=== PATIENT | female | born 1950 | race Caucasian/White ===

== ENCOUNTER 2022-07-30 12:11 | Emergency (ER) | payer OTHER ==
[~2022-07-30] VITALS: Ht 162.6 cm; Wt 84.1 kg
[2022-07-30 12:54] LABS: BASOPHILS % (AUTO) 0.8 % (0-1); EOSINOPHILS # (AUTO) 0.1 X10'3 (0-0.9); EOSINOPHILS % (AUTO) 4.5 % (0-6); HEMATOCRIT 30.6 % (35.0-45.0); HEMOGLOBIN 10.1 g/dl (12.0-16.0); LYMPHOCYTES # (AUTO) 0.4 X10'3 (1.1-4.8); LYMPHOCYTES % (AUTO) 18.8 % (21-51); MEAN CORPUSCULAR HGB CONC 33.1 g/dL (33.0-36.5); MEAN CORPUSCULAR VOLUME 99.7 FL (78-98); MEAN PLATELET VOLUME 6.2 FL (7.4-10.4); MONOCYTES # (AUTO) 0.1 X10'3 (0-0.9); MONOCYTES % (AUTO) 4.9 % (2-12); NEUTROPHILS # (AUTO) 1.6 X10'3 (1.8-7.7); PLATELET COUNT 73 X10'3 (140-440); RED BLOOD COUNT 3.07 X10'6 (4.20-5.60); WHITE BLOOD COUNT 2.3 X10'3 (4.5-11.0)
[2022-07-30 13:09] LABS: PLATELET ESTIMATE DECREASED; TOTAL CELLS COUNTED 100
[2022-07-30 13:10] LABS: ALANINE AMINOTRANSFERASE 34 U/L (12-78); ALBUMIN 3.2 G/DL (3.4-5.0); ALBUMIN/GLOBULIN RATIO 0.8 (1.1-1.5); ALKALINE PHOSPHATASE 96 IU/L (46-116); ANION GAP 8 (8-16); ANISOCYTOSIS 1+; ASPARTATE AMINO TRANSFERASE 99 U/L (10-37); BLOOD UREA NITROGEN 11 MG/DL (7-18); BUN/CREATININE RATIO 14.1 (6.6-38.0); CALCIUM 8.6 MG/DL (8.5-10.1); CHLORIDE 110 MMOL/L (99-107); CREATININE 0.78 MG/DL (0.40-0.90); GLUCOSE 79 MG/DL (70-104); LIPASE 266 U/L (73-393); POTASSIUM 3.6 MMOL/L (3.5-5.1); SODIUM 143 MMOL/L (135-145); TOTAL CARBON DIOXIDE 24.8 MMOL/L (24-32); TOTAL PROTEIN 7.1 G/DL (6.4-8.2); eGFR 73 ML/MIN
[2022-07-30 13:24] LABS: APTT 28 SECONDS (22-32)
[2022-07-30] MEDS ORDERED: diphenoxylate/atropine tablet (Lomotil) PO ONE (16:15)
[2022-07-30] MEDS ORDERED: LOPE2CAP PO (16:20)
[2022-07-30 17:26] VITALS: BP 136/71
== END 2022-07-30 17:33 | disposition home or self-care (01) ==
LOC: ER 12:13
DX: R19.7 Diarrhea, unspecified (principal); Z88.5 Allergy status to narcotic agent; Z88.8 Allergy status to other drugs, medicaments and biological substances; Z79.899 Other long term (current) drug therapy; Z86.2 Personal history of diseases of the blood and blood-forming organs and certain disorders involving the immune mechanism
CPT/HCPCS: 36415; 80053; 83690; 85007; 85025; 85610; 85730; 99284

== ENCOUNTER 2022-09-02 11:51 | Emergency (ER) | payer MEDICARE, MEDICAID ==
[~2022-09-02] VITALS: Ht 162.6 cm; Wt 90.0 kg
[~2022-09-02 11:51] MED LIST: LOPE2CAP PO
[2022-09-02 12:15] VITALS: BP 152/84
[2022-09-02] MEDS ORDERED: ibuprofen tablet 400 MG TABLET PO ONE (14:45)
[2022-09-02] MEDS ORDERED: triamcinolone acetonide 40mg/ml inj IM ONE (14:45)
== END 2022-09-02 15:43 | disposition home or self-care (01) ==
LOC: ER 11:52
DX: M25.552 Pain in left hip (principal); R51.9 Headache, unspecified; Z98.890 Other specified postprocedural states; Z88.6 Allergy status to analgesic agent; Z88.8 Allergy status to other drugs, medicaments and biological substances; Z88.5 Allergy status to narcotic agent; Z79.899 Other long term (current) drug therapy
CPT/HCPCS: 20552; 73502; 99284

== ENCOUNTER 2022-09-25 23:13 | Inpatient (IN) | payer MEDICARE, OTHER ==
[~2022-09-25] VITALS: Ht 162.6 cm; Wt 95.0 kg
[2022-09-25] MEDS ORDERED: nitroGLYCERIN 1gm ointment UD TP ONE (23:15)
[2022-09-25 23:33] LABS: BASOPHILS % (AUTO) 0.6 % (0-1); EOSINOPHILS # (AUTO) 0.1 X10'3 (0-0.9); EOSINOPHILS % (AUTO) 2.5 % (0-6); HEMATOCRIT 26.8 % (35.0-45.0); LYMPHOCYTES # (AUTO) 0.4 X10'3 (1.1-4.8); LYMPHOCYTES % (AUTO) 17.6 % (21-51); MEAN CORPUSCULAR HEMOGLOBIN 34.5 PG (27.0-31.0); MEAN CORPUSCULAR HGB CONC 33.7 g/dL (33.0-36.5); MEAN CORPUSCULAR VOLUME 102.6 FL (78-98); MEAN PLATELET VOLUME 6.9 FL (7.4-10.4); MONOCYTES # (AUTO) 0.1 X10'3 (0-0.9); MONOCYTES % (AUTO) 4.7 % (2-12); NEUTROPHILS # (AUTO) 1.7 X10'3 (1.8-7.7); NEUTROPHILS % (AUTO) 74.6 % (42-75); PLATELET COUNT 62 X10'3 (140-440); RED BLOOD COUNT 2.62 X10'6 (4.20-5.60); RED CELL DISTRIBUTION WIDTH 16.9 % (11.5-14.5); WHITE BLOOD COUNT 2.2 X10'3 (4.5-11.0)
[2022-09-25 23:54] LABS: ALANINE AMINOTRANSFERASE 27 U/L (12-78); ALBUMIN/GLOBULIN RATIO 0.8 (1.1-1.5); ALKALINE PHOSPHATASE 91 IU/L (46-116); ANION GAP 4 (8-16); ASPARTATE AMINO TRANSFERASE 80 U/L (10-37); BILIRUBIN,TOTAL 0.8 MG/DL (0.1-1.0); BLOOD UREA NITROGEN 12 MG/DL (7-18); CALCIUM 8.6 MG/DL (8.5-10.1); CHLORIDE 108 MMOL/L (99-107); GLUCOSE 112 MG/DL (70-104); POTASSIUM 3.5 MMOL/L (3.5-5.1); SODIUM 144 MMOL/L (135-145); TOTAL CARBON DIOXIDE 31.6 MMOL/L (24-32); TOTAL PROTEIN 6.7 G/DL (6.4-8.2); eGFR 71 ML/MIN
[2022-09-26] VITALS (9 sets, daily range): BP systolic 157–176; BP diastolic 73–79
[2022-09-26 00:25] LABS: ANISOCYTOSIS 1+; PLATELET ESTIMATE DECREASED; TOTAL CELLS COUNTED 100
--- NOTE | 2022-09-26 00:50 | NUR ---
TROP RE-DRAW SENT TO LAB
[2022-09-26] MEDS ORDERED: aminophylline 250mg/10ml inj. IV PRN (03:25)
[2022-09-26] MEDS ORDERED: magnesium hydroxide 30ml (MOM) UD suspension PO PRN (03:25)
[2022-09-26] MEDS ORDERED: nitroGLYCERIN 0.4mg SUBLingual tab SL PRN (03:25)
[2022-09-26] MEDS ORDERED: potassium Cl 20 mEq SR tablet PO PRN ×2 (03:25)
[2022-09-26] MEDS ORDERED: metoprolol tartrate 1mg/ml inj IV PRN (03:25)
[2022-09-26] MEDS ORDERED: potassium Cl 40MEQ/1/2NS 520ml 520 ML IV PRN (03:25)
[2022-09-26] MEDS ORDERED: magnesium 4gm in 100ml NS 100 ML IV PRN (03:25)
[2022-09-26] MEDS ORDERED: PERFLUTREN PROTEIN-A MICROSPHR (Optison) 0.22 MG/ML 3ML VIAL IV PRN (03:25)
[2022-09-26] MEDS ORDERED: magnesium Cl slow-release 64mg tablet PO PRN (03:25)
[2022-09-26] MEDS ORDERED: regadenoson 0.4mg/5ml syringe IV PRN (03:25)
[2022-09-26] MEDS ORDERED: mag hydrox/Alum hydrox/simeth 30ml oral suspension PO PRN (03:25)
[2022-09-26] MEDS ORDERED: ondansetron/PF 4mg/2ml inj IV PRN (03:25)
[2022-09-26 03:41] LABS: POTASSIUM 3.9 MMOL/L (3.5-5.1)
[2022-09-26] MEDS: normal saline 1000ml 1,000 ML IV SCH (04:18)
--- NOTE | 2022-09-26 05:30 | NUR ---
I agree with Deonna Wagner assessment.
[2022-09-26] MEDS: K and/or MAG REPLACEMENT MC SCH ×2 (08:00→20:00)
[2022-09-26] MEDS: docusate sod 100mg capsule PO SCH ×2 (08:00→20:19)
[2022-09-26] MEDS: aspirin 81mg, enteric-coated 1 TAB TABLET.DR PO SCH (08:09)
[2022-09-26] MEDS: heparin, porcine 5000 units/ml vial SQ SCH ×2 (08:09→20:00)
--- NOTE | 2022-09-26 08:13 | NUR ---
STRESS PLATING FOREMAN JOHNY AT BEDSIDE ALONG WITH LAB RN FABIO.PT AM MEDS ADMIN.
[2022-09-26] MEDS ORDERED: LEVO200T8 PO (09:32)
[2022-09-26] MEDS ORDERED: IBUP-1986 PO (13:14)
--- NOTE | 2022-09-26 15:57 | NUR ---
DR MORALES PAGED REGARDING PT FOR POSSIBLE DC AFTER JUAN CARLOS SCAN RESULTS
--- NOTE | 2022-09-26 16:13 | NUR ---
DR MORALES CALLED BACK, PT WILL NOT BE DC AT THIS TIME.
[2022-09-26] MEDS ORDERED: ibuprofen 200mg tablet PO ONE (20:45)
--- NOTE | 2022-09-26 21:00 | NUR ---
Notified that patients platelet count was 62. Held Heparin okayed
[2022-09-27 02:00] VITALS: BP 135/55
[2022-09-27 06:00] VITALS: BP 167/77
--- NOTE | 2022-09-27 06:27 | NUR ---
Problems reprioritized. Patient report given, questions answered & plan of care reviewed with JONELLE Rock.
[2022-09-27 06:57] LABS: BASOPHILS % (AUTO) 0.5 % (0-1); EOSINOPHILS # (AUTO) 0.1 X10'3 (0-0.9); HEMATOCRIT 26.2 % (35.0-45.0); HEMOGLOBIN 8.8 g/dl (12.0-16.0); LYMPHOCYTES # (AUTO) 0.4 X10'3 (1.1-4.8); LYMPHOCYTES % (AUTO) 20.1 % (21-51); MEAN CORPUSCULAR HEMOGLOBIN 34.5 PG (27.0-31.0); MEAN CORPUSCULAR HGB CONC 33.6 g/dL (33.0-36.5); MEAN CORPUSCULAR VOLUME 102.6 FL (78-98); MONOCYTES # (AUTO) 0.1 X10'3 (0-0.9); MONOCYTES % (AUTO) 5.4 % (2-12); NEUTROPHILS # (AUTO) 1.4 X10'3 (1.8-7.7); PLATELET COUNT 56 X10'3 (140-440); RED BLOOD COUNT 2.56 X10'6 (4.20-5.60); RED CELL DISTRIBUTION WIDTH 16.7 % (11.5-14.5)
[2022-09-27] MEDS: aspirin 81mg, enteric-coated 1 TAB TABLET.DR PO SCH (07:01)
[2022-09-27] MEDS: docusate sod 100mg capsule PO SCH ×2 (07:01→19:51)
[2022-09-27 07:25] LABS: ALANINE AMINOTRANSFERASE 25 U/L (12-78); ALBUMIN 2.8 G/DL (3.4-5.0); ALBUMIN/GLOBULIN RATIO 0.8 (1.1-1.5); ALKALINE PHOSPHATASE 74 IU/L (46-116); ANION GAP 7 (8-16); ASPARTATE AMINO TRANSFERASE 76 U/L (10-37); BLOOD UREA NITROGEN 14 MG/DL (7-18); BUN/CREATININE RATIO 17.5 (6.6-38.0); CALCIUM 8.4 MG/DL (8.5-10.1); CHLORIDE 108 MMOL/L (99-107); GLUCOSE 79 MG/DL (70-104); PHOSPHORUS 3.2 MG/DL (2.3-4.5); POTASSIUM 3.7 MMOL/L (3.5-5.1); SODIUM 140 MMOL/L (135-145); TOTAL CARBON DIOXIDE 25.4 MMOL/L (24-32); TOTAL PROTEIN 6.3 G/DL (6.4-8.2); eGFR 71 ML/MIN
[2022-09-27 07:35] LABS: ANISOCYTOSIS 1+; PLATELET ESTIMATE DECREASED; TOTAL CELLS COUNTED 100
[2022-09-27] MEDS: heparin, porcine 5000 units/ml vial SQ SCH (08:00)
[2022-09-27] MEDS: K and/or MAG REPLACEMENT MC SCH ×2 (08:00→19:51)
[2022-09-27] MEDS ORDERED: levoTHYROXINE 100mcg tablet PO SCH (08:00)
[2022-09-27 11:00] VITALS: BP 141/70
--- NOTE | 2022-09-27 12:54 | NUR ---
Patient in room [facility] 3017. I have received report from ABY SAL and had the opportunity to ask questions and assume patient care. Addendum: 09/27/22 at 1257 by Shweta Au LVN ABOVE INCORRECT, WRONG NURSE NAME ENTERED. Patient in room [place] [id number]. I have received report from ELINA GODINEZ and had the opportunity to ask questions and assume patient care.
[2022-09-27] MEDS ORDERED: OXYC5CAP19 PO (13:09)
[2022-09-27] MEDS ORDERED: PARO40TA4 PO (13:09)
[2022-09-27] MEDS ORDERED: LEVOTHYROXINE SODIUM 100 MCG/5 ML injection IV ONE (14:05)
--- NOTE | 2022-09-27 14:30 | NUR ---
Message: 1881o-GAEL Bosch--PHARMACY WANTS TO VERIFY YOU WANT 300 mcg LEVOTHYROXIE & NOT 500 mcg? JAIDEN [phone]
[2022-09-27 15:00] VITALS: BP 177/82
--- NOTE | 2022-09-27 16:31 | NUR ---
paged [phone] for possible pain med. pt has headache 05/15. Shweta [phone].
[2022-09-27] MEDS ORDERED: oxyCODONE SR 10mg (sust. release) tab PO ONE (17:00)
[2022-09-27] MEDS: oxyCODONE SR 10mg (sust. release) tab PO PRN ×2 (17:19→19:52)
[2022-09-27 18:00] VITALS: BP 164/84
--- NOTE | 2022-09-27 18:33 | NUR ---
Patient in room [facility] 3017. I have received report from Shweta SAL and had the opportunity to ask questions and assume patient care.
[2022-09-27] MEDS: normal saline 1000ml 1,000 ML IV SCH (19:53)
[2022-09-27 22:00] VITALS: BP 154/66
[2022-09-28 02:00] VITALS: BP 134/63
[2022-09-28 06:00] VITALS: BP 121/55
--- NOTE | 2022-09-28 06:49 | NUR ---
Problems reprioritized. Patient report given, questions answered & plan of care reviewed with Shweta GODINEZ.
[2022-09-28] MEDS ORDERED: levoTHYROXINE 100mcg tablet PO SCH (07:00)
[2022-09-28 07:04] LABS: BASOPHILS % (AUTO) 0.6 % (0-1); EOSINOPHILS # (AUTO) 0.1 X10'3 (0-0.9); EOSINOPHILS % (AUTO) 2.9 % (0-6); HEMATOCRIT 25.9 % (35.0-45.0); HEMOGLOBIN 8.7 g/dl (12.0-16.0); LYMPHOCYTES # (AUTO) 0.4 X10'3 (1.1-4.8); LYMPHOCYTES % (AUTO) 20.4 % (21-51); MEAN CORPUSCULAR HEMOGLOBIN 34.4 PG (27.0-31.0); MEAN CORPUSCULAR HGB CONC 33.5 g/dL (33.0-36.5); MEAN CORPUSCULAR VOLUME 102.9 FL (78-98); MEAN PLATELET VOLUME 6.4 FL (7.4-10.4); MONOCYTES # (AUTO) 0.1 X10'3 (0-0.9); MONOCYTES % (AUTO) 5.9 % (2-12); NEUTROPHILS # (AUTO) 1.4 X10'3 (1.8-7.7); NEUTROPHILS % (AUTO) 70.2 % (42-75); PLATELET COUNT 55 X10'3 (140-440); RED BLOOD COUNT 2.52 X10'6 (4.20-5.60); RED CELL DISTRIBUTION WIDTH 17.1 % (11.5-14.5)
--- NOTE | 2022-09-28 07:20 | NUR ---
Patient in room [facility] 3017. I have received report from ELINA GODINEZ and had the opportunity to ask questions and assume patient care.
[2022-09-28 07:27] LABS: ALANINE AMINOTRANSFERASE 25 U/L (12-78); ALBUMIN 2.8 G/DL (3.4-5.0); ALBUMIN/GLOBULIN RATIO 0.8 (1.1-1.5); ALKALINE PHOSPHATASE 72 IU/L (46-116); ANION GAP 6 (8-16); ASPARTATE AMINO TRANSFERASE 76 U/L (10-37); BILIRUBIN,TOTAL 0.9 MG/DL (0.1-1.0); BLOOD UREA NITROGEN 18 MG/DL (7-18); BUN/CREATININE RATIO 22.2 (6.6-38.0); CALCIUM 8.3 MG/DL (8.5-10.1); CHLORIDE 108 MMOL/L (99-107); CREATININE 0.81 MG/DL (0.40-0.90); GLUCOSE 74 MG/DL (70-104); MAGNESIUM 1.9 MG/DL (1.5-2.4); PHOSPHORUS 3.6 MG/DL (2.3-4.5); POTASSIUM 3.9 MMOL/L (3.5-5.1); SODIUM 141 MMOL/L (135-145); TOTAL CARBON DIOXIDE 26.8 MMOL/L (24-32); TOTAL PROTEIN 6.4 G/DL (6.4-8.2); eGFR 70 ML/MIN
[2022-09-28 07:34] LABS: ANISOCYTOSIS 1+; PLATELET ESTIMATE DECREASED; TOTAL CELLS COUNTED 100
[2022-09-28] MEDS: aspirin 81mg, enteric-coated 1 TAB TABLET.DR PO SCH (07:53)
[2022-09-28] MEDS: docusate sod 100mg capsule PO SCH (07:54)
[2022-09-28] MEDS: K and/or MAG REPLACEMENT MC SCH (07:56)
[2022-09-28] MEDS ORDERED: PARoxetine 20mg tablet PO SCH (08:00)
[2022-09-28] MEDS ORDERED: LEVO100T9 PO (10:38)
[2022-09-28] MEDS: oxyCODONE SR 10mg (sust. release) tab PO PRN (12:03)
[2022-10-12] MEDS ORDERED: LEVO300T6 PO (05:19)
== END 2022-09-28 12:16 | disposition home or self-care (01) | DRG 313 ==
LOC: ER 23:14 → ED HOLD 09-26 03:24 → PCU 3S 09-26 19:32
PROVIDERS: ADMIT Internal Medicine; ATTEND Family Medicine
PROC: 4A02XM4 Measurement of Cardiac Total Activity, External Approach (ICD-10-PCS; principal; 2022-09-26)
PROC: 3E033HZ Introduction of Radioactive Substance into Peripheral Vein, Percutaneous Approach (ICD-10-PCS; 2022-09-26)
DX: R07.89 Other chest pain (principal); D61.818 Other pancytopenia; L40.9 Psoriasis, unspecified; E03.9 Hypothyroidism, unspecified; F32.A Depression, unspecified; R01.1 Cardiac murmur, unspecified; R42 Dizziness and giddiness; R51.9 Headache, unspecified; I10 Essential (primary) hypertension; L40.50 Arthropathic psoriasis, unspecified; M06.9 Rheumatoid arthritis, unspecified; Z74.01 Bed confinement status; Z82.49 Family history of ischemic heart disease and other diseases of the circulatory system; Z86.16 Personal history of COVID-19; Z86.73 Personal history of transient ischemic attack (TIA), and cerebral infarction without residual deficits; Z88.6 Allergy status to analgesic agent; Z88.8 Allergy status to other drugs, medicaments and biological substances; Z90.49 Acquired absence of other specified parts of digestive tract; Z79.899 Other long term (current) drug therapy; Z91.199 Patient's noncompliance with other medical treatment and regimen due to unspecified reason
CPT/HCPCS: 36415; 70450; 71045; 78452; 80053; 83735; 83880; 84100; 84132; 84145; 84439; 84443; 84484; 85007; 85025; 87081; 93005; 93017; 93306; 97161; 97530; 99285; A9500; G0378; J1644; J2785; J3490; J7030

== ENCOUNTER 2022-10-26 14:40 | Outpatient (CLI) | payer MEDICARE, OTHER ==
[~2022-10-26 14:40] MED LIST changes: +LEVO300T6 PO; -LOPE2CAP PO; +OXYC5CAP19 PO; +PARO40TA4 PO
[2022-10-26 16:16] LABS: BASOPHILS % (AUTO) 0.7 % (0-1); EOSINOPHILS % (AUTO) 1.8 % (0-6); HEMOGLOBIN 8.5 g/dl (12.0-16.0); LYMPHOCYTES # (AUTO) 0.4 X10'3 (1.1-4.8); LYMPHOCYTES % (AUTO) 24.2 % (21-51); MEAN CORPUSCULAR HEMOGLOBIN 34.5 PG (27.0-31.0); MEAN CORPUSCULAR VOLUME 101.7 FL (78-98); MEAN PLATELET VOLUME 6.6 FL (7.4-10.4); MONOCYTES # (AUTO) 0.2 X10'3 (0-0.9); MONOCYTES % (AUTO) 12.5 % (2-12); NEUTROPHILS # (AUTO) 1.1 X10'3 (1.8-7.7); NEUTROPHILS % (AUTO) 60.8 % (42-75); PLATELET COUNT 85 X10'3 (140-440); RED BLOOD COUNT 2.46 X10'6 (4.20-5.60); RED CELL DISTRIBUTION WIDTH 16.7 % (11.5-14.5); WHITE BLOOD COUNT 1.8 X10'3 (4.5-11.0)
[2022-10-26 16:58] LABS: ANISOCYTOSIS 1+; PLATELET ESTIMATE DECREASED; TOTAL CELLS COUNTED 100
[2022-10-26 16:59] LABS: ELLIPTOCYTES 1+; POLYCHROMASIA FEW
[2022-10-26 17:00] LABS: TEAR DROP CELLS FEW
== END 2022-10-26 23:59 | disposition home or self-care (01) ==
LOC: LAB SPEC 14:40
PROVIDERS: ATTEND Family Medicine
DX: J18.9 Pneumonia, unspecified organism (principal)
CPT/HCPCS: 36415; 85007; 85025

== ENCOUNTER 2022-10-27 07:54 | Outpatient (CLI) | payer MEDICARE, OTHER ==
[2022-10-27 08:25] LABS: EOSINOPHILS % (AUTO) 2.1 % (0-6); HEMATOCRIT 24.3 % (35.0-45.0); HEMOGLOBIN 8.3 g/dl (12.0-16.0); LYMPHOCYTES # (AUTO) 0.5 X10'3 (1.1-4.8); LYMPHOCYTES % (AUTO) 32.9 % (21-51); MEAN CORPUSCULAR HEMOGLOBIN 34.3 PG (27.0-31.0); MEAN CORPUSCULAR HGB CONC 34.1 g/dL (33.0-36.5); MEAN CORPUSCULAR VOLUME 100.7 FL (78-98); MEAN PLATELET VOLUME 6.8 FL (7.4-10.4); MONOCYTES # (AUTO) 0.2 X10'3 (0-0.9); MONOCYTES % (AUTO) 10.2 % (2-12); NEUTROPHILS # (AUTO) 0.9 X10'3 (1.8-7.7); NEUTROPHILS % (AUTO) 53.8 % (42-75); PLATELET COUNT 85 X10'3 (140-440); RED BLOOD COUNT 2.41 X10'6 (4.20-5.60); RED CELL DISTRIBUTION WIDTH 16.5 % (11.5-14.5); WHITE BLOOD COUNT 1.6 X10'3 (4.5-11.0)
[2022-10-27 09:37] LABS: ANISOCYTOSIS 1+; PLATELET ESTIMATE DECREASED; TOTAL CELLS COUNTED 100
[2022-10-27 09:38] LABS: ELLIPTOCYTES 1+; POLYCHROMASIA FEW; TEAR DROP CELLS FEW
== END 2022-10-27 23:59 | disposition home or self-care (01) ==
LOC: LAB SPEC 07:54
PROVIDERS: ATTEND Family Medicine
DX: K74.60 Unspecified cirrhosis of liver (principal); J18.9 Pneumonia, unspecified organism
CPT/HCPCS: 85007; 85025

== ENCOUNTER 2022-10-29 13:19 | Emergency (ER) | payer MEDICARE, OTHER ==
[~2022-10-29] VITALS: Ht 162.6 cm; Wt 85.0 kg
--- NOTE | 2022-10-29 15:07 | NUR ---
Spoke with Bhakti at [facility] for handoff report. Procalcitonin and Lactic acid WIN. ED provider did have a consult with lead teacher.
[2022-10-29 15:20] VITALS: BP 140/64
== END 2022-10-29 15:56 | disposition home or self-care (01) ==
LOC: ER 13:20
DX: D61.818 Other pancytopenia (principal); I10 Essential (primary) hypertension; E03.9 Hypothyroidism, unspecified; Z88.5 Allergy status to narcotic agent; Z88.6 Allergy status to analgesic agent; Z88.8 Allergy status to other drugs, medicaments and biological substances; Z90.49 Acquired absence of other specified parts of digestive tract; Z90.710 Acquired absence of both cervix and uterus
CPT/HCPCS: 36415; 71045; 83605; 84145; 87040; 99284